=== PATIENT | female | born 2000 | race African-American/Black ===

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

== ENCOUNTER → 2020-04-10 | Outpatient (CLI) | payer SELFPAY | LOC: M LABSMTC 12:56 | PROVIDERS: ATTEND Pediatrics | DX: Z20.828 Contact with and (suspected) exposure to other viral communicable diseases (principal) ==

== ENCOUNTER 2020-07-19 09:40 | Emergency (ER) | payer BC, OTHER ==
[~2020-07-19] VITALS: Ht 170.2 cm; Wt 72.1 kg
[2020-07-19] MEDS ORDERED: LO LTAB (09:53)
[2020-07-19 12:04] LABS: APPEARANCE, URINE HAZY (CLEAR); BACTERIA, URINE AUTO 1+ (NEGATIVE); BILIRUBIN, URINE AUTO NEGATIVE (NEGATIVE); BLOOD, URINE BLOOD NEGATIVE (NEGATIVE); COLOR, URINE AMBER (YELLOW); GLUCOSE, URINE (UA) AUTO NEGATIVE (NEGATIVE); KETONE, URINE AUTO 2+ mg/dL (NEGATIVE); LEUKOCYTE ESTERASE, URINE AUTO TRACE (NEGATIVE); MUCUS, URINE LARGE (NEGATIVE); NITRITE, URINE AUTO POSITIVE (NEGATIVE); PROTEIN, URINE AUTO 2+ mg/dL (NEGATIVE); RBC, URINE AUTO 2 /HPF (0-3); SPECIFIC GRAVITY URINE AUTO 1.032 (1.002-1.035); SQUAMOUS EPITHELIAL CELL UR AU 3 /HPF (0-6); WBC, URINE AUTO 18 /HPF (0-3)
[2020-07-19 12:06] LABS: BASO % 0.6 % (0.0-1.0); EOS % 0.6 % (0.0-3.0); HEMATOCRIT 46.9 % (36.0-47.0); HEMOGLOBIN 15.1 g/dl (12.0-15.5); LYMPH # 1.2 10^3/uL (1.5-5.0); LYMPH % 23.1 % (24.0-44.0); MEAN CORPUSCULAR HEMOGLOBIN 29.4 pg (27.0-33.0); MEAN CORPUSCULAR HGB CONC 32.2 g/dl (32.0-36.5); MEAN CORPUSCULAR VOLUME 91.2 fl (80.0-96.0); MONO # 0.2 10^3/uL (0.0-0.8); MONO % 4.5 % (2.0-8.0); NEUTROPHILS # 3.7 10^3/uL (1.5-8.5); NEUTROPHILS % 70.8 % (36.0-66.0); PLATELET COUNT, AUTOMATED 254 10^3/uL (150-450); RED BLOOD COUNT 5.14 10^6/uL (4.00-5.40); WHITE BLOOD COUNT 5.2 10^3/uL (4.0-10.0)
[2020-07-19 12:12] LABS: ALBUMIN 4.3 GM/DL (3.2-5.2); ALT/SGPT 135 U/L (12-78); BILIRUBIN,DIRECT 0.2 MG/DL (0.0-0.2); BILIRUBIN,TOTAL 1.2 MG/DL (0.2-1.0); BLOOD UREA NITROGEN 15 MG/DL (7-18); CALCIUM LEVEL 10.2 MG/DL (8.5-10.1); CARBON DIOXIDE LEVEL 28 MEQ/L (21-32); CHLORIDE LEVEL 102 MEQ/L (98-107); CK-MB VALUE MASS < 1.0 NG/ML (<3.6); CPK CREATINE PHOSPHOKINASE 77 U/L (26-192); GLUCOSE, FASTING 105 MG/DL (70-100); LIPASE 152 U/L (73-393); POTASSIUM SERUM 3.8 MEQ/L (3.5-5.1); SODIUM LEVEL 137 MEQ/L (136-145); TOTAL PROTEIN 8.3 GM/DL (6.4-8.2); TROPONIN I < 0.02 NG/ML (< 0.10)
[2020-07-19] MEDS ORDERED: NS 1,000 ML IV ONE (12:20)
--- NOTE | 2020-07-19 12:57 | REP ---
INDICATION: elevated lfts/bilirubin, n/v, dizziness COMPARISON: None. TECHNIQUE: Real time woo scale ultrasound examination using curved array transducer. FINDINGS: Liver is normal in contour, size, and echogenicity without focal hepatic lesions identified. Pancreas is incompletely evaluated due to interposed bowel gas. The gallbladder is normal and without gallstones, wall thickening, or pericholecystic fluid. No biliary ductal dilatation is appreciated and the common bile duct measures 2.4 mm diameter. Right kidney is normal in reniform shape without hydronephrosis and measures 10.9 x 5.5 x 3.5 cm. No ascites in the visualized right upper quadrant. IMPRESSION: Normal limited right upper quadrant ultrasound <Electronically signed by Marcus Ramachandran > 07/19/20 [id number]
[2020-07-19 12:58] LABS: MONO SCRN NEGATIVE (NEGATIVE)
[2020-07-19 13:16] LABS: AMPHETAMINES LEVEL URINE NEGATIVE (NEGATIVE); BARBITURATES URINE NEGATIVE (NEGATIVE); BENZODIAZEPINES URINE NEGATIVE (NEGATIVE); CANNABINOIDS URINE POSITIVE (NEGATIVE); COCAINE METABOLITE URINE NEGATIVE (NEGATIVE); METHADONE URINE NEGATIVE (NEGATIVE); OPIATES URINE NEGATIVE (NEGATIVE); PHENCYCLIDINE URINE NEGATIVE (NEGATIVE)
[2020-07-19] MEDS ORDERED: NITR1CAP11 PO (13:58)
[2020-07-19 14:10] VITALS: BP 117/54
--- NOTE | 2020-07-20 03:19 | ECGEPIP ---
[facility] - ED Test Date: 2020-07-19 Pat Name: JOANNE BENITO Department: Room: - Gender: Female [employer]: LR : 2000 Requested By: KG Arango PA-C Order Number: [id number] Reading MD: Jose Saldivar Measurements Intervals [place] Rate: 52 P: 40 FL: 126 QRS: 64 QRSD: 80 T: 36 QT: 452 QTc: 420 Interpretive Statements Sinus bradycardia Baseline artifact Electronically Signed on 07-20-2020 3:19:08 EST by Jose Saldivar
== END 2020-07-19 14:11 | disposition home or self-care (01) ==
LOC: M ED 09:40
DX: N39.0 Urinary tract infection, site not specified (principal); F12.10 Cannabis abuse, uncomplicated; R11.10 Vomiting, unspecified

== ENCOUNTER → 2022-03-21 | Outpatient (CLI) | payer OTHER ==
[~2022-03-21] MED LIST: LO LTAB; NITR1CAP11 PO
== END ==
LOC: M PLALAB 14:53
PROVIDERS: ATTEND Family Medicine
DX: M25.532 Pain in left wrist (principal); M25.542 Pain in joints of left hand

== ENCOUNTER 2024-05-28 15:10 | Outpatient (CLI) | payer OTHER ==
[~2024-05-28] VITALS: Ht 170.2 cm; Wt 80.0 kg
[~2024-05-28 15:10] MED LIST changes: +NITR100C3 PO; -NITR1CAP11 PO
[2024-05-28 15:20] VITALS: BP 134/85; O2SAT 100
[2024-05-28] MEDS: methylPREDNISolone 1,000 MG, VIAL MATE ADAPTER 1 EACH in NS 100 ML IV ONE (15:36)
[2024-05-28 16:40] VITALS: BP 114/68; O2SAT 100
== END 2024-05-28 16:45 | disposition home or self-care (01) ==
LOC: M INFU 15:10
PROVIDERS: ATTEND Obstetrics & Gynecology Hospice and Palliative Medicine
DX: G35 Multiple sclerosis (principal)
CPT/HCPCS: 96365; J2919

== ENCOUNTER → 2024-05-29 | Outpatient (CLI) | payer OTHER ==
[~2024-05-29] VITALS: Ht 170.2 cm; Wt 80.0 kg
[2024-05-29 09:15] VITALS: BP 129/79; O2SAT 98
[2024-05-29] MEDS: methylPREDNISolone 1,000 MG, VIAL MATE ADAPTER 1 EACH in NS 100 ML IV ONE (09:21)
[2024-05-29 10:25] VITALS: BP 120/72; O2SAT 99
== END ==
LOC: M ED 09:13
PROVIDERS: ATTEND Psychiatry & Neurology Neurology
DX: G35 Multiple sclerosis (principal)
CPT/HCPCS: 96365; J2919

== ENCOUNTER → 2024-05-30 | Outpatient (CLI) | payer OTHER ==
[~2024-05-30] VITALS: Ht 170.2 cm; Wt 80.0 kg
[2024-05-30 08:50] VITALS: BP 113/67; O2SAT 97
[2024-05-30] MEDS: methylPREDNISolone 1,000 MG, VIAL MATE ADAPTER 1 EACH in NS 100 ML IV ONE (09:00)
[2024-05-30 10:10] VITALS: BP 122/82; O2SAT 99
== END ==
LOC: M ED 08:35
PROVIDERS: ATTEND Psychiatry & Neurology Neurology
DX: G35 Multiple sclerosis (principal)
CPT/HCPCS: 96365; J2919

== ENCOUNTER 2024-05-31 08:50 | Outpatient (CLI) | payer OTHER ==
[~2024-05-31] VITALS: Ht 177.8 cm; Wt 79.1 kg
[2024-05-31 08:45] VITALS: BP 135/82; O2SAT 100
[2024-05-31] MEDS: methylPREDNISolone 1,000 MG, VIAL MATE ADAPTER 1 EACH in NS 100 ML IV ONE (08:57)
[2024-05-31] MEDS ORDERED: methylPREDNISolone 1,000 MG, VIAL MATE ADAPTER 1 EACH in NS 100 ML IV ONE (09:00)
[2024-05-31 10:00] VITALS: BP 119/78; O2SAT 100
== END 2024-05-31 10:12 ==
LOC: M INFU 08:50
PROVIDERS: ATTEND Obstetrics & Gynecology Hospice and Palliative Medicine
DX: G35 Multiple sclerosis (principal)
CPT/HCPCS: 96365; J2919

== ENCOUNTER 2024-06-01 09:00 | Outpatient (CLI) | payer OTHER ==
[2024-06-01 09:00] VITALS: BP 128/70; O2SAT 100
[2024-06-01] MEDS: methylPREDNISolone 1,000 MG, VIAL MATE ADAPTER 1 EACH in NS 100 ML IV ONE (09:07)
[2024-06-01 10:15] VITALS: BP 125/82; O2SAT 100
== END 2024-06-01 10:15 ==
LOC: M INFU 09:00
PROVIDERS: ATTEND Obstetrics & Gynecology Hospice and Palliative Medicine
DX: G35 Multiple sclerosis (principal)
CPT/HCPCS: 96365; J2919

== ENCOUNTER 2024-08-13 11:04 | Outpatient (CLI) | payer OTHER ==
[~2024-08-13] VITALS: Ht 167.6 cm; Wt 79.5 kg
[2024-08-13 11:20] VITALS: BP 130/73; O2SAT 100
[2024-08-13] MEDS: ACETAMINOPHEN 650 MG PO ONE (11:39)
[2024-08-13] MEDS: methylPREDNISolone 125MG 2ML VIAL IV ONE (11:39)
[2024-08-13] MEDS: diphenhydrAMINE 25MG CAP PO ONE (11:39)
[2024-08-13] MEDS: OCRELIZUMAB 300 MG in NS 250 ML IV ONE (12:22)
[2024-08-13 13:30] VITALS: BP_SYST 116; BP_SYST 123; BP_DIAS 63; BP_DIAS 73; O2SAT 100; O2SAT 99
[2024-08-13 14:00] VITALS: BP 133/76; O2SAT 98
[2024-08-13 14:30] VITALS: BP 120/57; O2SAT 99
[2024-08-13 15:00] VITALS: BP 117/58; O2SAT 100
== END 2024-08-13 15:35 | disposition home or self-care (01) ==
LOC: M INFU 11:04
PROVIDERS: ATTEND Psychiatry & Neurology Neurology
DX: G35 Multiple sclerosis (principal)
CPT/HCPCS: 96365; 96366; 96375; J2350; J2919

== ENCOUNTER 2024-08-27 11:29 | Outpatient (CLI) | payer OTHER ==
[~2024-08-27] VITALS: Ht 167.6 cm; Wt 81.8 kg
[2024-08-27] VITALS (7 sets, daily range): BP systolic 115–132; BP diastolic 62–89; TEMP 36.6; O2SAT 98–100
[2024-08-27] MEDS: diphenhydrAMINE 25MG CAP PO ONE (11:48)
[2024-08-27] MEDS: ACETAMINOPHEN 650 MG PO ONE (11:49)
[2024-08-27] MEDS: methylPREDNISolone 125MG 2ML VIAL IV ONE (12:25)
[2024-08-27] MEDS: OCRELIZUMAB 300 MG in NS 250 ML IV ONE (12:26)
== END 2024-08-27 15:30 | disposition home or self-care (01) ==
LOC: M INFU 11:29
PROVIDERS: ATTEND Psychiatry & Neurology Neurology
DX: G35 Multiple sclerosis (principal)
CPT/HCPCS: 96365; 96366; 96375; J2350; J2919

== ENCOUNTER 2025-03-04 11:49 | Outpatient (CLI) | payer OTHER ==
[2025-03-04] VITALS (7 sets, daily range): BP systolic 108–136; BP diastolic 59–87; TEMP 36.7; O2SAT 98–100
[~2025-03-04] VITALS: Ht 167.6 cm; Wt 78.6 kg
[2025-03-04] MEDS: ACETAMINOPHEN 325 MG TAB PO ONE (12:19)
[2025-03-04] MEDS: OCRELIZUMAB 600 MG in NS 500 ML IV ONE (12:57)
== END 2025-03-04 17:05 | disposition home or self-care (01) ==
LOC: M INFU 11:49
PROVIDERS: ATTEND Psychiatry & Neurology Neurology
DX: G35.D Multiple sclerosis, unspecified (principal)
CPT/HCPCS: 96365; 96366; 96375; J2350; J2919